=== PATIENT | male | born 1985 | race Caucasian/White ===

== ENCOUNTER 2017-01-12 08:41 | Emergency (ER) | payer OTHER ==
[~2017-01-12] VITALS: Ht 185.4 cm; Wt 70.3 kg
[2017-01-12 09:48] LABS: ABSOLUTE BASOPHIL COUNT 0 /CUMM (0.0-0.2); ABSOLUTE EOSINOPHIL COUNT 0.1 /CUMM (0.0-0.7); ABSOLUTE GRANULOCYTE CT 4.1 /CUMM (1.4-6.5); ABSOLUTE LYMPH COUNT 1.7 /CUMM (1.2-3.4); ABSOLUTE MONOCYTE COUNT 0.7 /CUMM (0.10-0.60); BASOPHIL % 0.4 % (0.0-2.0); EOSINOPHIL % 1.7 % (0-5); GRANULOCYTE % 62.5 % (42.2-75.2); HEMATOCRIT 43.1 % (42-52); MEAN CORPUSCULAR HGB 29.1 PG (27.0-31.0); MEAN CORPUSCULAR HGB CONC 33.7 G/DL (33.0-37.0); MEAN CORPUSCULAR VOLUME 86.5 FL (80.0-94.0); MEAN PLATELET VOLUME 8.6 FL (7.4-10.4); PLATELET COUNT 146 /CUMM (130-400); RBC DISTRIBUTION WIDTH 12.8 % (11.5-14.5); RED BLOOD CELL CT 4.99 /CUMM (4.70-6.10); WHITE BLOOD CELL COUNT 6.6 /CUMM (4.8-10.8)
--- NOTE | 2017-01-12 09:59 | ED GI/GU/ABDOMINAL COMPLAINT ---
History of Present Illness General Chief Complaint: Abdominal Pain/Flank Pain Stated Complaint: "I THINK I HAVE A KIDNEY STONE" Source: patient Exam Limitations: no limitations Vital Signs & Intake/Output Vital Signs & Intake/Output Vital Signs Date Time Temp Pulse Resp B/P B/P Pulse O2 O2 Flow FiO2 Mean Ox Delivery Rate 01/12 1055 97.0 60 20 119/84 100 Room Air 01/12 0844 98.4 80 18 124/87 98 Room Air Allergies Coded Allergies: Penicillins (UNKNOWN 01/12/17) Reconcile Medications Bupropion HCl (Bupropion XL) 300 MG TAB.ER.24H 1 TAB PO QAM ANTIDPRESSANT ( Reported) Triage Note: 31 YO MALE TO TRIAGE C/O L SIDED FLANK PAIN RADIATING TO L GROIN AREA. DENIES URINARY S/S. +NAUSEA LAST PM, DENIES VOMTIING/DIRRHEA. STATES PAIN HAS BEEN GOING ON FOR 1 WEEK. Triage Nurses Notes Reviewed? yes Onset: Gradual Duration: day(s): Timing: recent history Quality/Severity: moderate, severe Severity Numbers: 6 Location: left flank Radiation: groin Prior Abdominal Problems: none HPI: 31-year-old male presents emergency department complaining of left-sided flank pain 6 days. Patient states that pain is fluctuating in intensity/severity, last night was 10/10, this morning has been 6/10. Pain is described as deep aching pressure, radiating from flank to left groin. Patient was seen and evaluated at urgent clinic and was informed he likely had muscle-related pain, he was prescribed muscle relaxer and instructed to take [id number] pain relievers. Patient states that these medications have not relieved his pain. The patient denies history of kidney stone. The patient has also been experiencing abdominal pain with nausea. The patient denies hematuria, dysuria, fevers, chills, vomiting, diarrhea, skin rash. (NATALIO PENN,BENITEZ RILEY) Past History Travel History Traveled to [place] past 21 day No Medical History Any Pertinent Medical History? none Neurological: NONE EENT: NONE Cardiovascular: NONE Respiratory: NONE Gastrointestinal: NONE Hepatic: NONE Renal: NONE Musculoskeletal: NONE Psychiatric: NONE Endocrine: NONE Blood Disorders: NONE Cancer(s): NONE HR ASSISTANT/Reproductive: NONE Surgical History Surgical History: none Psychosocial History What is your primary language Trinidadian Tobacco Use: Quit >30 days ago Family History Hx Contributory? No (BENITEZ LANCE PA-C) Review of Systems Review of Systems Constitutional: Reports: no symptoms. EENTM: Reports: no symptoms. Respiratory: Reports: no symptoms. Cardiovascular: Reports: no symptoms. GI: Reports: see HPI. Genitourinary: Reports: see HPI. Musculoskeletal: Reports: see HPI. Skin: Reports: no symptoms. Neurological/Psychological: Reports: no symptoms. Hematologic/Endocrine: Reports: no symptoms. Immunologic/Allergic: Reports: no symptoms. All Other Systems: Reviewed and Negative (BENITEZ LANCE PA-C) Physical Exam Physical Exam General Appearance: well developed/nourished, no apparent distress, alert, awake Head: atraumatic, normal appearance Eyes: Bilateral: normal appearance. Ears, Nose, Throat, Mouth: hearing grossly normal Neck: normal inspection, supple, full range of motion Respiratory: normal breath sounds, no respiratory distress, lungs clear Cardiovascular: regular rate/rhythm Gastrointestinal: normal bowel sounds, soft, LUQ, LLQ tenderness, no rebound tenderness Back: normal inspection, normal range of motion, no CVA tendernes Extremities: normal range of motion Neurologic/Psych: awake, alert, oriented x 3 Skin: intact, normal color, warm/dry Core Measures ACS in differential dx? No Severe Sepsis Present: No Septic Shock Present: No (BENITEZ LANCE PA-C) Progress Differential Diagnosis: appendicitis, bowel obstruction, diverticulitis, epididymitis, gastritis, inflamm bowel dis, pancreatitis, pyelonephritis, SBO, STD, ureterolithiasis, urethritis, UTI/pyelo Plan of Care: Orders Procedure Date/time Status URINALYSIS 01/12 919 Complete COMPREHENSIVE METABOLIC PANEL 01/12 919 Complete CBC WITHOUT DIFFERENTIAL 01/12 919 Complete Laboratory Tests 01/12/17 1015: Urine Color YEL, Urine Clarity CLEAR, Urine pH 6.5, Ur Specific [place] 1.020, Urine Protein NEG, Urine Ketones NEG, Urine Nitrite NEG, Urine Bilirubin NEG, Urine Urobilinogen 0.2, Ur Leukocyte Esterase NEG, Ur Microscopic EXAM NOT REQUIRED, Urine Hemoglobin NEG, Urine Glucose NEG 01/12/17 0925: Anion Gap 11, Estimated GFR > 60, BUN/Creatinine Ratio 17.0, Glucose 71, Calcium 9.2, Total Bilirubin 0.6, AST 16 L, ALT 29, Alkaline Phosphatase 74, Total Protein 6.7, Albumin 4.1, Globulin 2.6, Albumin/Globulin Ratio 1.6, CBC w Diff NO MAN DIFF REQ, RBC 4.99, MCV 86.5, MCH 29.1, RDW 12.8, MPV 8.6, Gran % 62.5, Lymphocytes % 25.3, Monocytes % 10.1 H, Eosinophils % 1.7, Basophils % 0.4, Absolute Granulocytes 4.1, Absolute Lymphocytes 1.7, Absolute Monocytes 0.7 H, Absolute Eosinophils 0.1, Absolute Basophils 0, PUBS MCHC 33.7 The patient was discussed with Dr. Flynn. The patient's labs are within normal limits, urine negative, no leukocytosis. Abdominal CT scan is within normal limits. Pain may be related to constipation, could also be muscular. The patient was instructed to quill picking machine operator [id number] stool softener to use as needed for constipation. The patient may take muscle relaxer and NSAID as prescribed by walk-in clinic if these medications improve his symptoms. He will increase his oral fluid intake. He will follow up with GI for flank/abdominal pain. She was instructed to return with any worsening symptoms or concerns. The patient is well-appearing, nontoxic appearing, in no acute acute distress, his vital signs remained stable the duration of this visit. The patient is in agreement with the plan of care. (NATALIO PENN,BENITEZ RILEY) Diagnostic Imaging: Viewed by Me: CT Scan. Discussed w/RAD: CT Scan. Radiology Impression: PATIENT: ALEC SANABRIA PRESENT AGE: 31 PATIENT ACCOUNT NO: [id number] : 85 LOCATION: [facility] ORDERING PHYSICIAN: BENITEZ LANCE PA-C SERVICE DATE: 01/12/17 EXAM TYPE: CAT - CT ABD & PELVIS W/O IV CONTRAS EXAMINATION: CT ABDOMEN AND PELVIS WITHOUT CONTRAST CLINICAL INFORMATION: Left flank pain radiating to groin. COMPARISON: None TECHNIQUE: Multidetector volumetric imaging was performed from the superior aspect of the liver through the pubic symphysis. Sagittal and coronal reformatted images were obtained on the technologist's workstation. DLP: 266 mGy -cm FINDINGS: LUNG BASES: The visualized lung bases are unremarkable. LIVER, GALLBLADDER, AND BILIARY TREE: The liver is normal in size, shape, and attenuation. No focal hepatic lesion or biliary ductal dilatation is present. The gallbladder is unremarkable with no evidence of radiopaque gallstones, gallbladder wall thickening, or obvious pericholecystic inflammatory changes. PANCREAS: Unremarkable. SPLEEN: Unremarkable. ADRENAL GLANDS: There is dense bilateral adrenal gland calcification. KIDNEYS AND URETERS: The kidneys are normal in size, shape, and attenuation. No hydronephrosis, hydroureter, or calculi seen. No perinephric stranding. BLADDER: Unremarkable. GASTROINTESTINAL TRACT: There is moderate stool seen scattered throughout the colon without any distention. The small bowel loops our normal caliber. Recently ingested radiopaque tablets within the stomach. No free air or free fluid seen. ABDOMINAL WALL: No significant hernia is appreciated. LYMPH NODES: Normal. VASCULAR: Unremarkable. PELVIC VISCERA: There is no free air or free fluid. OSSEOUS STRUCTURES: Visualized liver, spleen and pancreas appears unremarkable. IMPRESSION: No acute intra-abdominal process seen. Mild constipation without obstruction. No radiopaque urolith or hydronephrosis. DICTATED BY: FENG COWAN MD DATE/TIME DICTATED:01/12/171021 MRI CT TECH:DON DATE/TIME TRANSCRIBED:01/12/171021 CONFIDENTIAL, DO NOT COPY WITHOUT APPROPRIATE AUTHORIZATION. <Electronically signed in Other Vendor System> SIGNED BY: FENG COWAN MD 01/12/17 103 Initial ED EKG: none (NATALIO PENN,BENITEZ RILEY) Departure Departure Disposition: HOME OR SELF CARE Condition: Stable Clinical Impression Primary Impression: Abdominal pain Referrals: SALVATORE WOLFE,SUSANNA DOMÍNGUEZ MD,MARVEL (PCP/Family) Additional Instructions: Continue to take Tylenol or Motrin as prescribed as needed for pain. Follow up with toy assembler wood Doctor given to you today, call the office to make an appointment for this week. If constipated, you may purchase [id number] stool softeners to take as needed. Inform your primary care doctor that you're seen and evaluated today. Return with any worsening symptoms or concerns including high fevers, vomiting, diarrhea, worsening abdominal pain. Please note that there might be incidental findings in your evaluation that are unrelated to the current emergency department visit. Please notify your primary care doctor about this emergency department visit in order to obtain and review all of the testing performed so that these incidental findings can be monitored as needed. If you had an x-ray performed, please understand that some fractures may not be seen on the initial set of x-rays. If your symptoms persist you might need a repeat set of x-rays to check for such a fracture. If you had a laceration evaluated, please understand that foreign bodies such as glass or wood may not be visible to the naked eye or on plain x-rays. If the wound becomes red, swollen, increasingly more painful or if there is any drainage from the wound, please have it reevaluated by a physician for the possibility of a retained foreign body. If you're unable to follow up as outlined in the discharge instructions please return to the emergency department. Thank you for choosing the [facility] Emergency Department for your care. It was a pleasure to serve you today. Departure Forms: Customer Survey General Discharge Information (NATALIO PENN,BENITEZ RILEY) PA/CERTIFIED COURT/MEDICAL INTERPRETER Co-Sign Statement Statement: ED Attending supervision documentation- [] I saw and evaluated the patient. I have also reviewed all the pertinent lab results and diagnostic results. I agree with the findings and the plan of care as documented in the PA's/CERTIFIED COURT/MEDICAL INTERPRETER's documentation. [X] I have reviewed the ED Record and agree with the PA's/CERTIFIED COURT/MEDICAL INTERPRETER's documentation. [] Additions or exceptions (if any) to the PAs/CERTIFIED COURT/MEDICAL INTERPRETER's note and plan are summarized below: [] (KULWANT WOLFE,ABRAN)
--- NOTE | 2017-01-12 10:32 | CT SCAN REPORT ---
EXAMINATION: CT ABDOMEN AND PELVIS WITHOUT CONTRAST CLINICAL INFORMATION: Left flank pain radiating to groin. COMPARISON: None TECHNIQUE: Multidetector volumetric imaging was performed from the superior aspect of the liver through the pubic symphysis. Sagittal and coronal reformatted images were obtained on the technologist's workstation. DLP: 266 mGy-cm FINDINGS: LUNG BASES: The visualized lung bases are unremarkable. LIVER, GALLBLADDER, AND BILIARY TREE: The liver is normal in size, shape, and attenuation. No focal hepatic lesion or biliary ductal dilatation is present. The gallbladder is unremarkable with no evidence of radiopaque gallstones, gallbladder wall thickening, or obvious pericholecystic inflammatory changes. PANCREAS: Unremarkable. SPLEEN: Unremarkable. ADRENAL GLANDS: There is dense bilateral adrenal gland calcification. KIDNEYS AND URETERS: The kidneys are normal in size, shape, and attenuation. No hydronephrosis, hydroureter, or calculi seen. No perinephric stranding. BLADDER: Unremarkable. GASTROINTESTINAL TRACT: There is moderate stool seen scattered throughout the colon without any distention. The small bowel loops our normal caliber. Recently ingested radiopaque tablets within the stomach. No free air or free fluid seen. ABDOMINAL WALL: No significant hernia is appreciated. LYMPH NODES: Normal. VASCULAR: Unremarkable. PELVIC VISCERA: There is no free air or free fluid. OSSEOUS STRUCTURES: Visualized liver, spleen and pancreas appears unremarkable. IMPRESSION: No acute intra-abdominal process seen. Mild constipation without obstruction. No radiopaque urolith or hydronephrosis.
[2017-01-12 10:55] VITALS: BP 119/84
[2017-01-12] MEDS ORDERED: BUPROPION XL300 M1 PO (10:55)
== END 2017-01-12 11:05 ==
LOC: ERH 08:41
PROVIDERS: Physician Assistant
DX: R10.12 Left upper quadrant pain (principal); R10.32 Left lower quadrant pain
CPT/HCPCS: 74176; 81003